=== PATIENT | female | born 1990 | race Caucasian/White ===

== ENCOUNTER 2017-08-15 17:17 | Emergency (ER) | payer BC ==
[2017-08-15 17:41] VITALS: BP 110/73
[2017-08-15] MEDS ORDERED: Famotidine 20 MG Tab PO ONE (19:32)
[2017-08-15] MEDS ORDERED: predniSONE 20 MG Tab PO ONE (19:32)
--- NOTE | 2017-08-15 19:38 | EDM.PDOC ---
ED HPI GENERAL MEDICAL PROBLEM - General Chief Complaint: Skin Complaint Stated Complaint: RASH ON BOTH ARMS AND LEGS Time Seen by Provider: 08/15/17 19:06 Source of Information: Reports: Patient History Limitations: Reports: No Limitations - History of Present Illness INITIAL COMMENTS - FREE TEXT/NARRATIVE: Patient is a 27-year-old female who presents to the ED complaining of a rash to her upper and lower extremities. States it started approx 2 days ago after being exposed to chemicals while cleaning her carpets. Initially started on her legs and has now developed to her arms. The rashes are very itchy. She initially believed it maybe related scabies but notes there has been no recent exposure. She has no rashes between the fingers or toes. There is no linear pattern or burrowing noted. She has been applying Benadryl lotion and taking Claritin with minimal improvements to the itching. There is no history of allergic reaction to environmental or chemicals noted. She has no additional past medical history and currently taking no prescription medications. - Related Data Allergies Allergy/AdvReac Type Severity Reaction Status Date / Time No Known Allergies Allergy Verified 08/15/17 17:42 Home Meds: Home Meds predniSONE 20 mg PO WITHBREAKFAST #5 tab 08/15/17 [Rx] Past Medical History - Past Health History Medical/Surgical History: Denies Medical/Surgical History Social & Family History - Tobacco Use Smoking Status *Q: Never Smoker - Caffeine Use Caffeine Use: Reports: Coffee, Soda, Tea - Recreational Drug Use Recreational Drug Use: No ED ROS GENERAL - Review of Systems Review Of Systems: ROS reveals no pertinent complaints other than HPI. ED EXAM, SKIN/RASH Exam: See Below Exam Limited By: No Limitations General Appearance: Alert, WD/WN, No Apparent Distress Ears: Hearing Grossly Normal Nose: Normal Inspection Throat/Mouth: Normal Voice, No Airway Compromise Neck: Normal Inspection, Supple Respiratory/Chest: No Respiratory Distress, Lungs Clear, Normal Breath Sounds, No Accessory Muscle Use, Chest Non-Tender Cardiovascular: Normal Peripheral Pulses, Regular Rate, Rhythm, No Murmur Peripheral Pulses: 4+: Radial (R) GI/Abdominal: No Organomegaly Back Exam: Normal Inspection Extremities: Normal Range of Motion, Non-Tender. No: Joint Swelling, Increased Warmth, Redness Neurological: Alert, Oriented, CN II-XII Intact, Normal Cognition, No Motor/ Sensory Deficits Psychiatric: Normal Affect, Normal Mood Skin: Warm, Dry Location, Skin: Upper Extremity, Right, Upper Extremity, Left, Lower Extremity, Right, Lower Extremity, Left Characteristics: Papular, Fine. No: Confluent, Patchy, Linear, Valarie, Polycyclic, Vesicular, Bullous, Urticarial, Petechial, Erythematous, Necrotic Associated features: No: Warmth, Tenderness, Swelling, Induration Course - Vital Signs Last Recorded V/S: Last Vital Signs Temp 98.9 F 08/15/17 17:40 Pulse 77 08/15/17 17:40 Resp 20 08/15/17 17:40 BP 110/73 08/15/17 17:40 Pulse Ox 100 08/15/17 17:40 - Orders/Labs/Meds Meds: Medications Discontinued Medications Generic Name Dose Route Start Last Admin Trade Name Freq PRN Reason Stop Dose Admin Famotidine 40 mg 08/15/17 19:32 08/15/17 19:36 Pepcid PO 08/15/17 19:33 40 mg ONETIME ONE Administration Prednisone 40 mg 08/15/17 19:32 08/15/17 19:35 Prednisone PO 08/15/17 19:33 40 mg ONETIME ONE Administration - Re-Assessments/Exams Free Text/Narrative Re-Assessment/Exam: Suspect patient has contact dermatitis from chemical exposure from cleaning carpets. These areas of itching and copious the lower extremities and also obstructive extremities. Spares the trunk and back. These are areas that have been exposed to any chemicals. In addition they were taking care of her 3 dogs over the last few days as well. She has no allergies to dogs in the past. I have elected to start the patient on prednisone 40 mg by mouth and Pepcid 40 mg by mouth. Patient will be discharged home with instructions as documented. Departure - Departure Time of Disposition: 19:35 Disposition: Home, Self-Care 01 Condition: Good Clinical Impression: Contact dermatitis Qualifiers: Contact dermatitis type: allergic Contact dermatitis trigger: other chemical product Qualified Code(s): L23.5 - Allergic contact dermatitis due to other chemical products - Discharge Information Prescriptions: predniSONE 20 mg PO WITHBREAKFAST #5 tab Instructions: Contact Dermatitis, [id number] Referrals: PCP,None [Primary Care Provider] - Forms: ED Department Discharge Additional Instructions: Take the prednisone as prescribed 20 mg every day for the next 5 days. Take Pepcid 40 mg every day for the next 5 days as well. May use Benadryl 25 mg to 50 mg every 6 hours if itching persists. Suggest applying hydrocortisone ointment 1% to the affected areas with heavy coat of Aquaphor ointment to break the itch process. Do not apply the hydrocortisone ointment for any longer than one week. Please followup with PCP this coming week if symptoms persist. Return to the E.D. if you develop any new or worsening symptoms.
== END 2017-08-15 20:00 | disposition home or self-care (01) ==
LOC: MERGE 17:17 → JD.ED 17:17
DX: L23.5 Allergic contact dermatitis due to other chemical products (principal)
CPT/HCPCS: 99283; A9270